=== PATIENT | female | born 1990 ===

== ENCOUNTER 2022-01-05 09:02 | Day surgery (SDC) | payer BC, MEDICAID, OTHER ==
[~2022-01-05 09:02] MED LIST: Acetaminophen 1,000 MG in Premix Bag 1 BAG IV SCH; Albuterol 0.083% 2.5 MG/3 ML Neb Soln NEB PRN; HYDROmorphone 1 MG/ML Syringe IVPUSH PRN; Lactated Ringers 1,000 ML IV SCH; Metoclopramide 10 MG/2 ML SDV IVPUSH PRN; Morphine 2 MG/ML SYRINGE IVPUSH PRN; Naloxone 0.4 MG/ML SDV IVPUSH PRN; Ondansetron 4 MG/2 ML SDV IVPUSH PRN; Pregabalin 75 MG Cap PO SCH; Scopolamine 1.5 MG Transdermal Patch TOP ONE; cefOXitin 2 GM in Premix Bag 1 BAG IV SCH; fentaNYL 50 MCG/ML SDV IVPUSH PRN
[2022-01-05] MEDS ORDERED: Scopolamine 1.5 MG Transdermal Patch ONE (09:27)
[2022-01-05] MEDS ORDERED: Ropivacaine 0.5% 5 MG/ML 30 ML SDV ONE (09:55)
[2022-01-05] MEDS ORDERED: Rocuronium Bromide 50 MG/5 ML Syringe ONE (10:12)
[2022-01-05] MEDS ORDERED: Ketorolac 30 MG/ML SDV ONE (10:12)
[2022-01-05] MEDS ORDERED: Sugammadex Sodium 200 MG/2 ML VIAL ONE (10:12)
[2022-01-05] MEDS ORDERED: Lidocaine 2% 5 ML SDV ONE (10:12)
[2022-01-05] MEDS ORDERED: Ondansetron 4 MG/2 ML SDV ONE (10:12)
[2022-01-05] MEDS ORDERED: Propofol 200 MG/20 ML SDV ONE ×2 (10:13→10:18)
[2022-01-05] MEDS ORDERED: fentaNYL 100 MCG/2 ML SDV ONE ×2 (10:13→13:39)
[2022-01-05] MEDS ORDERED: Bupivacaine 0.25% 30 ML SDV ONE (10:25)
[2022-01-05] MEDS ORDERED: propofoL 50 ML ONE (11:44)
[2022-01-05] MEDS ORDERED: HYDROmorphone 2 MG/ML Syringe ONE (12:49)
[2022-01-05] MEDS ORDERED: oxyCODONE 5 MG Tab PO ONE ×2 (14:08→15:00)
[2022-01-05] MEDS ORDERED: oxyCODONE 5 MG Tab ONE (14:15)
== END 2022-01-05 15:22 | disposition home or self-care (01) ==
LOC: MW.SDS 09:02
PROVIDERS: ATTEND Surgery
DX: K80.10 Calculus of gallbladder with chronic cholecystitis without obstruction (principal); K42.9 Umbilical hernia without obstruction or gangrene; K66.0 Peritoneal adhesions (postprocedural) (postinfection); K21.9 Gastro-esophageal reflux disease without esophagitis; E66.9 Obesity, unspecified; F17.210 Nicotine dependence, cigarettes, uncomplicated; F41.9 Anxiety disorder, unspecified; Z68.36 Body mass index [BMI] 36.0-36.9, adult; Z88.0 Allergy status to penicillin; Z79.899 Other long term (current) drug therapy; Z98.890 Other specified postprocedural states
CPT/HCPCS: 47562; 81025; A9270; J1170; J1885; J2405; J2704; J2795; J3010; J3490; J7120; 00790; 64488